=== PATIENT | female | born 1950 | race Caucasian/White ===

== ENCOUNTER 2024-12-19 08:23 | Day surgery (SDC) | payer MEDICARE, OTHER, SELFPAY ==
--- OUTSIDE RECORDS SUMMARY | 2023-12-08 04:15 | XMS_ITS ---
Author Organization [facility] Address [address] [place] [address] Care Team Providers Care Braille Proofreader Name Role Phone Cosmo Mackenzie MD Primary Care Provider Terese Trammell Unavailable [phone] Gil Torres Unavailable [phone] REASON FOR VISIT Last PCP Visit: 06/2023 Medications Medication SIG (Take, Route, Frequency, Duration) Notes Start Date End Date Status Keflex 500 MG 1 capsule Orally every 12 hrs; Duration: 5 days Unknown Voltaren 1 % as directed Externally Active Keflex 500 MG 1 capsule Orally every 12 hrs; Duration: 5 days 05/10/2016 Unknown Physical Therapy . . . 2-3x/week; Duration: 3-4 weeks Active Motrin IB 200 MG 1 tablet as needed Orally every 6 hrs Unknown Ibuprofen 800 MG 1 tablet Orally Three times a day; Duration: 30 day(s) Unknown Zetia 10 MG 1 tablet Orally Once a day Unknown Aspirin 325 MG 1 tablet Orally Once a day Unknown Chantix 1 MG 1 tablet Orally Twice a day started 04/27/2016 Unknown Varenicline Tartrate 1 MG TAKE 1 TABLET BY MOUTH TWICE A DAY Oral; Duration: 90 Days Active Vitamin D3 Active Fish Oil Active Calcium Active Ezetimibe 10 MG TAKE 1 TABLET BY MOUTH EVERY DAY Oral; Duration: 90 Days Active Encounters Encounter Location Date Provider Diagnosis [facility] [address] [place] [address] 12/08/2023 Gil Torres Pain in right foot M79.671 and Sesamoiditis of right foot M25.871 Assessments Encounter Date Diagnosis (ICD Code) Assessment Notes Treatment Notes Treatment Clinical Notes Section Notes 12/08/2023 Pain in right foot (ICD-10 - M79.671) 12/08/2023 Sesamoiditis of right foot (ICD-10 - M25.871) Plan Of Treatment Medication Medication Name Sig Start Date Stop Date Notes Voltaren 1 % as directed Externally Physical Therapy . . . 2-3x/week; Duration: 3-4 weeks Next Appt Details Follow Up: 2 Months, Reason: Progress Notes * Michelle JOINER JDOB:1950 (74 yo F)Acc No.[id number]:12/08/2023 Progress Note Patient: Michelle CARMEN Provider: Mikayla Torres DPM :1950 A ge:73 Y S ex:Female Date:12/08/2023 Address:[address] [place] [address] , [facility] Pcp:Cosmo Mackenzie MD Subjective: * Chief Complaints: * 1 . Last PCP Visit: 06/2023. * HPI: F oot Pain: Nature: d ull. Location B ottom, Great toe joint, Right . Duration: s everal months. Onset/Cause: p revious hav sx 2016. Course: u nchanged. Aggrevated: s tanding, walking. Treatments: r est, pedag insoles, voltaren gel. Quality/Severity 5 , scale 1-10. * ROS: G eneral/Constitutional: Nausea d enies. V omiting d enies. H virgilio Thirst d enies. L oss appetite d enies. C hills d enies. F atigue d enies.?Fever d enies. N ight Sweats d enies. U nexplained weight loss d enies. O phthalmologic: Blurred vision d enies. R ed eye d enies. ? H EENTM: Dentures d enies. D izziness d enies. G lasses/contacts d enies. R etinopathy d enies. B lurred/double vision d enies. T MJ?denies. D ischarge/drainage d enies. I mplants d enies. H kelly of hearing denies. D ifficulty chewing/swallowing/speaking d enies. N ose bleeds d enies.?Sore mouth d enies. S wollen glands d enies. R espiratory: On Oxygen d enies. P neumonia/pleurisy d enies.?Bronchitis d enies. E mphysema d enies. C oughing d enies. C ough blood?denies. S hortness of breath d enies. W heezing d enies. C ardiovascular: Pacemaker d enies. M CHILDREN'S ATTENDANT d enies. W PW d enies. C HF d enies. H eart attack d enies. S eptal defect d enies. R apid beat d enies. C hest pain d enies. A trial Fib. d enies. M urmur/Palpitations d enies. G astrointestinal: Hemorrhoids d enies. S tomach/Abdominal pain d enies. D ark blood stool d enies. I rritable bowel d enies. C onstipation d enies. D iarrhea d enies. V omiting d enies. H ematology: Swelling d enies. B ruising d enies. B leeding problem d enies. G enitourinary: Blood urine d enies. F requent/Painfu/urination/bladder control d enies. K idney stones d enies. I nfection (UTI) d enies. N ephropathy d enies. M usculoskeletal: Hammertoes d enies. B unions d enies. S coliosis/kyphosis d enies. M uscle cramps / walking d enies. G eneralized aches and pains?denies. W eakness d enies. I nteg.: Goins d enies. S cars d enies. C orns/calluses?denies. I ngrown nails d enies. P ainful nails d enies. R ashes d enies. N eurologic: Difficulty sleeping d enies. B ipolar d enies. B rain disorder d enies. B alance trouble d enies. C onfusion d enies. F ainting/blackouts d enies. H eadache d enies. T remors d enies. * Medical History: * Medications: T aking Calcium , Taking Vitamin D3 , Taking Fish Oil , Taking Ezetimibe 10 MG Tablet TAKE 1 TABLET BY MOUTH EVERY DAY Oral , Taking Varenicline Tartrate 1 MG Tablet TAKE 1 TABLET BY MOUTH TWICE A DAY Oral , Taking Voltaren 1 % Gel as directed Externally , Taking Physical Therapy . . . . 2-3x/week , Unknown Aspirin 325 MG Tablet 1 tablet Orally Once a day , Unknown Chantix 1 MG Tablet 1 tablet Orally Twice a day , Notes to Pharmacist: started 04/27/2016, Unknown Ibuprofen 800 MG Tablet 1 tablet Orally Three times a day , Unknown Zetia 10 MG Tablet 1 tablet Orally Once a day , Unknown Motrin IB 200 MG Tablet 1 tablet as needed Orally every 6 hrs , Unknown Keflex 500 MG Capsule 1 capsule Orally every 12 hrs , Unknown Keflex 500 MG Capsule 1 capsule Orally every 12 hrs Objective: * Vitals: * Examination: G eneral Examination: GENERAL APPEARANCE: p leasant, alert, well nourished, well developed, well hydrated, with good attention to hygene/body habitus, and in no acute distress. ORIENTED: p erson,place, and time. N eurological: SENSORY: N eurological exam is normal, pain sensation normal, vibration sensation intact, pinprick sensation is normal in the lower extremities, denies, tingling, burning, anesthesia, paresthesia, hyperesthesia, B/L, Neurological exam demonstrates pop plantar right first mtpj medial sesamoid. TINEL'S COMPRESSION: N egative tarsal tunnel, avinash pedis, and medial calcaneal nerves B/L. BABINSKI REFLEX: a bsent. N euroma Pain: PALPATION: N o interspace pain noted on palpation. ? V ascular: DP PULSES (B): 2 /4, B/L. PT PULSES (B): 2 /4, B/L. CAPILLARY FILL TIME: 3 secs. per digit, B/L. TROPHIC CONDITION-TEXTURE/ELASTICITY/TURGOR/HAIR GROWTH (B):?normal, B/L. TEMPERTURE GRADIENT (C): w arm to cool, proximal to distal, B/L. PIGMENTATION: n ormal, B/L. EDEMA (C): n o edema. TELANGECTASIA: a bsent. VARICOSITIES: a bsent. D ermatologic: SKIN FINDINGS: S kin exam reveals normal texture, elasticity, and tugor. There are no masses. The interspaces are clear, B/L . O rthopedic: MUSCLE STRENGTH: 5 /5 all groups in a symmetrical fashion , B/L. GAIT ABNORMALITY: p ronated, abducted, B/L. ? Assessment: * Assessment: 1. P ain in right foot - M79.671 (Primary) 2 . S esamoiditis of right foot - M25.871 Plan: * Treatment: 2. S esamoiditis of right foot Start Physical Therapy ., ., ., ., 2-3x/week, 3-4 weeks, Dx:, Refills .. * Follow Up: 2 Months * Images: * The named appointment provid er may or may not be the originator of this progress note, and it is not deemed complete until electronically signed by the appointment provider. Sign off status: Pending * Provider: Mikayla Torres DPM Date: 1 Generated for Angel canales/Jonnie/Lesleeitting on: 0 10/23/2024 11:32 AM EDT History and Physical Notes * HPI (History of Present Illness) Category Sub-Category Detail Notes Category Not es Foot Pain Aggrevated: standing, walking Onset/Cause: previous hav sx 2016 Course: unchanged Duration: several months Nature: dull Treatments: rest, pedag insoles, voltaren gel Quality/Severity 5, scale 1-10 Location Bottom, Great toe donte int, Right Examination Category Sub-Category Detail Notes Category Not es Neuroma Pain PALPATION: No interspace pain noted on palpation Neurological SENSORY: Neurological exa m is normal, pain sensation normal, vibration sensation intact, pinprick sensation is normal in the lower extremities, denies, tingling, burning, anesthesia, paresthesia, hyperesthesia, B/L, Neurological exam demonstrates pop plantar right first mtpj medial sesamoid BABINSKI REFLEX: absent TINEL'S COMPRESSION: Negative tarsal lolis felicity, avinash pedis, and medial calcaneal nerves B/L Dermatologic SKIN FINDINGS: Skin exam reveal s normal texture, elasticity, and tugor. There are no masses. The interspaces are clear, B/L Orthopedic GAIT ABNORMALITY: pronated, abducted, B/L MUSCLE STRENGTH: 5/5 all groups in a symmetrical fashion , B/L General Examination GENERAL APPEARANCE: pleasant , alert, well nourished, well developed, well hydrated, with good attention to hygene/body habitus, and in no acute distress ORIENTED: person,place, and ti me Vascular DP PULSES (B): 2/4, B/L PT PULSES (B): 2/4, B/L CAPILLARY FILL TIME: 3 secs. per digit, B/L TEMPERTURE GRADIENT (C): warm to cool, p roximal to distal, B/L TROPHIC CONDITION-TEXTURE/ELASTICITY/TURGOR/HAIR GROWTH (B): normal, B/L EDEMA (C): no edema TELANGECTASIA: absent VARICOSITIES: absent PIGMENTATION: normal, B/L
--- OUTSIDE RECORDS SUMMARY | 2024-10-23 11:33 | XMS_ITS | Patient Health Record ---
Author Organization [facility] Address [address] [place] [address] Care Team Providers Care Tank Setter Helper Name Role Phone Cosmo Mackenzie Primary Care Provider Freddy Johnson Unavailable [phone] Allergies Allergen (clinical drug ingredient) Drug/Non Drug Allergy documented on EMR Reaction Allergy Type Onset Date Status nickel ? (uncoded) metal contact dermatitis Allergy Active Reason For Referral No Information Medications Medication SIG (Take, Route, Frequency, Duration) Notes Start Date End Date Status Varenicline Tartrate (Starter) 0.5 MG X 11 & 1 MG X 42 TAKE DIRECTED Oral for 26 Days Chantix Active Fish Oil 1000 MG 1 capsule Orally Thr ee times a day for 30 day(s) 09/19/2024 Active Vitamin D 50 MCG (1999 UT) 1 tablet Orally Once a day for 30 day(s) 09/19/2024 Active Hair Skin & Nails - as directed Orally 09/19/2024 Active Praluent 75 MG/ML Subcutaneous for 28 Days Active Ezetimibe 10 MG TAKE 1 TABLET BY OPAL TH EVERY DAY Oral for 90 Days Active Immunizations Vaccine Route Administration Date Status Comme nts Influenza Unknown 12/27/2023 Administered Problems Problem Type SNOMED Code ICD Code Onset Dates Problem Status W/U Status Risk Notes Problem Colon cancer screening (354446254) Colon cancer screening (V76.51) Active confirmed Problem Long-term current use of aspirin (534511478214889) Aspirin long-term use (V58.66) Active confirmed Problem Colon cancer screening (677946816) Colon cancer screening (Z12.11) Active confirmed Problem Long-term current use of antithrombotic (886699773751155) termite helper (current) use of antithrombotics/ antiplatelets (Z79.02) Active confirmed Problem Preprocedural examination (490918586820328) Preprocedural examination (Z01.818) Active confirmed Vital Signs Temperature 97.1 degrees Fahrenheit 09/19/2024 Blood pressure diastolic 01 mm Hg 09/19/2024 Height 64.5 in 09/19/2024 Blood pressure systolic 001 mm Hg 09/19/2024 Weight 154 lbs 09/19/2024 BMI 26.02 kg/m2 09/19/2024 Procedures Procedure Date Ordered Date Performed Result Body Sit e COLONOSCOPY 09/19/2024 N/A Encounters Encounter Location Date Provider Diagnosis [facility] [address] [place] [address] 09/19/2024 Freddy Marks Preprocedural examination Z01.818 ; termite helper (current) use of antithrombotics/antipla telets Z79.02 and Colon cancer screening Z12.11 Assessments Encounter Date Diagnosis (ICD Code) Assessment Notes Treatment Notes Treatment Clinical Notes Section Notes 09/19/2024 detention (current) use of antithrombotics/a ntiplatelets (ICD-10 - Z79.02) Overall, Mary Beth appears quite well. I did recommend a follow-up colonoscopy for screening given her age, good clinical appearance, and her last exam being just about 10 years ago. We did review the rationale for this in regard to colon cancer prevention. Full consent has been obtained for this, including risk of bleeding and perforation. The procedure will be done with monitored anesthesia care. She was given the below instructions regarding adjustment of her medication for the procedure. The procedure will be scheduled for sometime in the Fall so as to allow time for her cardiac workup. I did advise her to keep me posted in that regard and to let me know of any medication changes. She will have PAT testing prior to the colonoscopy to allow Anesthesia to get what ever information they need from her cardiac workup. Mary Beth was comfortable with this plan. Thank you again for allowing me to participate in Mary Beth's care. I shall continue to keep you advised of her progress. 09/19/2024 Preprocedural examination (ICD-10 - Z01.818) Overall, Mary Beth appears quite well. I did recommend a follow-up colonoscopy for screening given her age, good clinical appearance, and her last exam being just about 10 years ago. We did review the rationale for this in regard to colon cancer prevention. Full consent has been obtained for this, including risk of bleeding and perforation. The procedure will be done with monitored anesthesia care. She was given the below instructions regarding adjustment of her medication for the procedure. The procedure will be scheduled for sometime in the Fall so as to allow time for her cardiac workup. I did advise her to keep me posted in that regard and to let me know of any medication changes. She will have PAT testing prior to the colonoscopy to allow Anesthesia to get what ever information they need from her cardiac workup. Mary Beth was comfortable with this plan. Thank you again for allowing me to participate in Mary Beth's care. I shall continue to keep you advised of her progress. 09/19/2024 Colon cancer screening (ICD-10 - Z12.11) Overall, Mary Beth appears quite well. I did recommend a follow-up colonoscopy for screening given her age, good clinical appearance, and her last exam being just about 10 years ago. We did review the rationale for this in regard to colon cancer prevention. Full consent has been obtained for this, including risk of bleeding and perforation. The procedure will be done with monitored anesthesia care. She was given the below instructions regarding adjustment of her medication for the procedure. The procedure will be scheduled for sometime in the Fall so as to allow time for her cardiac workup. I did advise her to keep me posted in that regard and to let me know of any medication changes. She will have PAT testing prior to the colonoscopy to allow Anesthesia to get what ever information they need from her cardiac workup. Mary Beth was comfortable with this plan. Thank you again for allowing me to participate in Mary Beth's care. I shall continue to keep you advised of her progress. Plan Of Treatment Pending Test Test Name Order Date COLONOSCOPY 09/19/2024 Future Test Test Name Order Date COLONOSCOPY 09/24/2014 Next Appt Details Provider Name:Freddy Marks , 12/19/2024 09:30:00 AM, [address] [place] [address] , [place], [place], [id number], Insurance Providers Payer Name Payer Address Payer Phone Subscriber Number Group Number Insured Name Patient Relationship to Insured Coverage Start Date Coverage End Date MEDICARE OF [place] [address] [place] [id number] MARY BETH ROMANO Self - patient is the insured 4 [employer] ([employer] [address] [place] [id number] [phone] [id number] MiliMARY BETH WATKINS Self - patient is the insured 4 Medical (General) History Medical History History ICD Code Colonoscopy 12-19-2003- only hyperplastic polyps, sigmoid diverticulosis, and internal hemorrhoids Denies NH,DM,CVA,renal disease Breast [id number] mast ectomy, in 2019 recurred on the right- surgery as below Hyperlipidemia Intermittent tachycardias- s eeing Dr. Andrews and Dr. Victoria at [facility] Cardiology- - 'Early COPD - -no smoking since early 2024 Colonoscopy 12/2014- 1 tiny tubular francis david removed from the Ileocecal valve Surgical History Surgery Date(Month/Year) Right mastectomy 2019 Right and left knee TKR Tonsillectomy Left mastectomy for breast cancer 2004 [facility]
--- OUTSIDE RECORDS SUMMARY | 2024-10-23 11:33 | XMS_ITS | Clinical Summary ---
Author Organization [facility] Address [address] [address] Phone Care Team Providers Care Medicare Specialist Name Role Phone Jaspreet Smith MD Primary Care Provider [phone] Allergies No known active allergies Medications sennosides (SENNA) 8.6 mg Cap Take 8.6 mg by mouth daily. Active docusate sodium (COLACE) 100 MG capsule Take 100 mg by mouth 2 (two) times a day. Active ezetimibe (ZETIA) 10 mg tablet Take 10 mg by mouth daily. Active aspirin 325 MG tablet Take 325 mg by mouth 2 (two) times a day. Active varenicline (CHANTIX) 1 mg tablet Take 1 mg by mouth 2 (two) times a day. Active acetaminophen (TYLENOL EXTRA STRENGTH) 500 MG tablet Take 500 mg by mouth 3 (three) times a day. Active HYDROmorphone (DILAUDID) 2 MG tablet Take 2 mg by mouth every 3 (three) hours as needed (right knee). Active celecoxib (CELEBREX) 200 MG capsule Take 200 mg by mouth daily. start day after surgery Active Active Problems Problem Noted Date Diagnosed Date Breast cancer 01/24/2012 Overview (04/27/2014): Malignant tumor of breast; Left; diagnosed via mammogram Estrogen+ mastectomy screening since then is normal BRCA negative Hyperlipidemia 01/24/2012 Overview (04/27/2014): Hyperlipidemia Social History Tobacco Use Types Packs/Day Years Used Date Smoking Tobacco: Former Cigarettes Comments:Quit smokin01/20 Education Answer Date Recorded Are you interested in more education? Not on tito e 07/01/2022 Are you concerned about learning? Not on file 07/01/2022 No 07/01/2022 No 07/01/2022 Digital Access Answer Date Recorded No 08/02/2022 No 08/02/2022 No 08/02/2022 Reliable internet access at home? Not on file 08/02/2022 Device with a working camera? Not on file Comments Unknown Sex and Gender Information Value Date Recorded Sex Assigned at Not on file Legal Sex Female 7:33 PM EST Gender Identity Not on file Sexual Orientation Not on file Last Filed Vital Signs Vital Sign Reading Time Taken Comments Blood Pressure 104/68 02/04/2017 10:02 AM EST Pulse 68 02/04/2017 10:02 AM EST Temperature 37.2 C (99 F) 02/04/2017 10:02 AM EST Respiratory Rate - - Oxygen Saturation 99% 02/04/2017 10:02 AM EST Inhaled Oxygen Concentration - - Weight 69.9 kg (154 lb) 01/14/2017 11:56 AM EST Height 162.6 cm (5' 4 ) 01/14/2017 11:56 AM EST Body Mass Index 26.43 01/14/2017 11:56 AM EST Plan of Treatment Health Maintenance Due Date Last Done Comments LIPID PANEL 1950 DEPRESSION SCREENING 1963 SMOKING Hx and SMOKELESS TOBACCO SCREENING 05/15/1964 HEPATITIS C SCREENING 05/15/1969 MAMMOGRAM 1991 COLOGUARD 05/15/1996 COLONOSCOPY 05/15/1996 COLORECTAL CANCER SCREENING 05/15/1996 FIT TEST 05/15/1996 FOBT 05/15/1996 SIGMOIDOSCOPY 05/15/1996 VIRTUAL COLONOSCOPY 05/15/1996 OSTEOPOROSIS SCREENING INITI AL (ONE-TIME) 05/15/2016 COVID-19 VACCINE (3 - 2023-2 5 season) 2023 05/13/2020, 04/21/2020 Adult Td,Tdap Booster 03/09/2025 03/09/2015 RSV VACCINE (1 - 1-dose 75+ series) 05/15/2026 ZOSTER VACCINES Completed 10/06/2017, 07/19/2017 PNEUMOCOCCAL VACCINES (50+ years) Completed 12/05/2018, 11/18/2017 HEPATITIS A VACCINES Aged Out No long er eligible based on patient's age to complete this topic HIB VACCINES Aged Out No longer eligi ble based on patient's age to complete this topic MENINGOCOCCAL VACCINES (ACWY) Aged Out No longer eligible based on patient's age to complete this topic MENINGOCOCCAL VACCINES (B) Aged Out N o longer eligible based on patient's age to complete this topic Medical Devices Not on file Insurance MEDICARE PART A & B MEDICARE PART A & B MEDICARE PART A & B MEDICARE PART A & B MEDICARE PART A & B MEDICARE PART A & B MEDICARE PART A & B MEDICARE PART A & B MEDICARE PART A & B Care Teams Medicare Specialist Relationship Specialty Start Date End Date Jaspreet Smith MD PCP - General 07/11/14 Additional Source Comments The information contained in this document represents components of the legal health record. It is not the complete legal health record.[facility]
[2024-12-03 09:58] VITALS: BMI 26.1
--- NOTE | 2024-12-06 12:54 | P.CONAN_ITS ---
HPI - Anesthesia Eval Consult details Narrative: 74yo F for Colonoscopy, 12/19/24 Eval with [facility] and EP 08/2024 d/t elevated CV risk, palpitations. Managing HLD tx, advised quit smoking, w/u for possible SVT - pt monitoring at home with watch. [facility] Past Medical History Medical History History of chemotherapy Arthritis Cough COPD (chronic obstructive pulmonary disease) Tachycardia Tobacco abuse Palpitations Osteopenia Back pain Dyslipidemia Breast cancer BRCA negative URI, acute Surgical History Surgical History Hx of laparoscopy (~1980) Hx of right mastectomy (~2019) H/O colonoscopy History of bilateral knee replacement Hx of tonsillectomy (~1972) Hx of hysterectomy (~1989) Hx of mastectomy (~2004) Social History Social History Are you a primary live in caregiver to a significant other at home: No Do you presently have visiting nurse or other home services: No Patient Tobacco Use Status: Current someday Tobacco user Cigarette Packs Per Day: 0.5 Cigarettes Per Day: 10.0 Use of substances other than those prescribed or required for medical reasons: No Have you been hit, kicked, punched, or otherwise hurt by someone within the past year? If so, by whom?: No Are you DNR?: No Advance Directives: No Advance Directives Information Provided: Yes Advance Directives on File: No Patient : No : No Poor oral hygiene: Yes Meds Allergies Allergy/AdvReac Type Severity Reaction Status Date / Time adhesive tape (ADHESIVE TAPE) Allergy Unknown RASH Verified 12/19/24 09:11 erythromycin base Allergy Unknown RASH Verified 12/19/24 09:11 (ERYTHROMYCIN BASE) nickel (NICKEL) Allergy Unknown UNKNOWN Verified 12/19/24 09:11 Sulfa (Sulfonamide AdvReac Unknown GI UPSET Verified 12/19/24 09:11 Antibiotics) (SULFA (SULFONAMIDE ANTIBIOTICS)) Home Medications ?Medication ?Instructions ?Recorded ?Confirmed ?Last Taken ?Type alirocumab 75 mg/mL subcutaneous 75 mg subcut Q2W 11/0611/30/24 Unknown History pen injector (Praluent Pen) calcium 600 mg (as 1 tab PO DAILY 11/30/2411/06 Unknown History carbonate)-vitamin D3 10 mcg (400 unit) tablet (Calcium 600 + D(3)) cholecalciferol (vitamin D3) 25 25 mcg PO BID 11/30/24 12/03/24 Unknown History mcg (1,000 unit) capsule (Vitamin D3) ezetimibe 10 mg tablet 10 mg PO BEDTIME 11/30/24 Unknown History ferrous sulfate 324 mg (65 mg 324 mg PO Q OTHER DAY 12/03/24 Unknown History iron) tablet,delayed release omega 4-rzt-exk-fish oil 1,000 mg 1 cap PO BID 5 12/03/24 12/17/24 History (120 mg-180 mg) capsule (Fish Oil) varenicline tartrate 1 mg tablet 1 mg PO BID 11/30/24 12/03/24 Unknown History vitamins A,C,R-spuk-wvpunc 4,296 1 cap PO BID 11/30/24 12/03/24 Unknown History mcg-226 mg-90 mg capsule Exam Height,Weight and Vital Signs: Height 5 ft 4 in Weight 68.946 kg Narrative Narrative: EKG 11/2024 Ventricular Rate: 70 BPM Atrial Rate: 70 BPM P-R Interval: 166 ms QRS Duration: 78 ms Q-T Interval: 386 ms QTC Calculation(Bazett): 416 ms P [place]: 35 degrees R [place]: 16 degrees T [place]: 52 degrees Normal sinus rhythm Normal ECG When compared with ECG of 07-Aug-2024 08:01, No significant change was found Confirmed by ISAK LAURA, [facility] ([id number]) on 11/20/2024 5:35:03 PM Echocardiogram - Complete ? 08:01:13 Summary The left ventricle is normal in size. Systolic function is preserved. Ejection fraction is 60-65%. No definite wall motion abnormalities detected. Normal diastolic function. The left atrium is normal in size. The right ventricle is normal in size. Function is preserved. The right atrium is dilated. The pulmonary artery systolic pressure estimation is 25-30 mmHg. Comparison No prior study available for comparison. Assessment and Plan Assessment Anesthesia Assessment: Chart Reviewed
[2024-12-19 08:45] VITALS: BMI 26.8
[2024-12-19 09:10] VITALS: BP 104/70; PULSE 65; RESP 18; TEMP 36.7; O2SAT 100
[2024-12-19] MEDS: Lactated Ringers 1,000 ML 100 ML IVCONT (09:10)
--- NOTE | 2024-12-19 09:11 | HO.ANESPROP2 ---
[facility] Active Problems Active Problems: 2 weeks ago quit Past Medical History Medical History History of chemotherapy Arthritis Cough COPD (chronic obstructive pulmonary disease) Tachycardia Tobacco abuse Palpitations Osteopenia Back pain Dyslipidemia Breast cancer BRCA negative URI, acute Functional capacity: independent ambulation Family History Family history of problems with anesthesia: No Surgical History Surgical History Hx of laparoscopy (~1980) Hx of right mastectomy (~2019) H/O colonoscopy History of bilateral knee replacement Hx of tonsillectomy (~1972) Hx of hysterectomy (~1989) Hx of mastectomy (~2004) History of Problems with Anesthesia: No Social History Social History Are you a primary residential child care counselor to a significant other at home: No Do you presently have visiting nurse or other home services: No Patient Tobacco Use Status: Current someday Tobacco user Cigarette Packs Per Day: 0.5 Cigarettes Per Day: 10.0 Use of substances other than those prescribed or required for medical reasons: No Have you been hit, kicked, punched, or otherwise hurt by someone within the past year? If so, by whom?: No Are you DNR?: No Advance Directives: No Advance Directives Information Provided: Yes Advance Directives on File: No Patient : No : No Poor oral hygiene: Yes Meds Allergies Allergy/AdvReac Type Severity Reaction Status Date / Time adhesive tape (ADHESIVE TAPE) Allergy Unknown RASH Verified 12/19/24 09:11 erythromycin base Allergy Unknown RASH Verified 12/19/24 09:11 (ERYTHROMYCIN BASE) nickel (NICKEL) Allergy Unknown UNKNOWN Verified 12/19/24 09:11 Sulfa (Sulfonamide AdvReac Unknown GI UPSET Verified 12/19/24 09:11 Antibiotics) (SULFA (SULFONAMIDE ANTIBIOTICS)) Active Medications: Current Medications Albuterol Sulfate (Albuterol Sulfate (0.083%) 2.5 Mg/3 Ml Vial.Neb) 2.5 mg INHALE ONCE PRN PRN Reason: Shortness of Breath/Wheezing Lactated Ringer's (Lr) 1,000 mls @ 100 mls/hr IVCONT .Q10H JV Sodium Biphosphate/Sodium Phosphate (Sodium Phosphate,[place]-Dibasic 133 Ml Enema) 133 ml TX ONCE PRN PRN Reason: Poor Colonoscopy Prep Results Home Medications ?Medication ?Instructions ?Recorded ?Confirmed ?Last Taken ?Type alirocumab 75 mg/mL subcutaneous 75 mg subcut Q2W 11/30/24 11/30/24 Unknown History pen injector (Praluent Pen) calcium 600 mg (as 1 tab PO DAILY 11/30/24 11/30/24 Unknown History carbonate)-vitamin D3 10 mcg (400 unit) tablet (Calcium 600 + D(3)) cholecalciferol (vitamin D3) 25 25 mcg PO BID 11/30/24 12/03/24 Unknown History mcg (1,000 unit) capsule (Vitamin D3) ezetimibe 10 mg tablet 10 mg PO BEDTIME 11/30/24 12/03/24 Unknown History ferrous sulfate 324 mg (65 mg 324 mg PO Q OTHER DAY 11/30/24 12/03/24 Unknown History iron) tablet,delayed release omega 3-gnu-naz-fish oil 1,000 mg 1 cap PO BID 11/30/24 12/03/24 12/17/24 History (120 mg-180 mg) capsule (Fish Oil) varenicline tartrate 1 mg tablet 1 mg PO BID 11/30/24 12/03/24 Unknown History vitamins A,C,Q-kxhm-bupeil 4,296 1 cap PO BID 11/30/24 12/03/24 Unknown History mcg-226 mg-90 mg capsule Exam Exam Date and Time: 12/19/2024 Height,Weight and Vital Signs: Height 5 ft 4 in Weight 70.851 kg Airway Mallampati Class: II TM Dist: >3cm Neck ROM: Full Heart: rrr Lungs: ctab vesicular Assessment and Plan Assessment Anesthesia Assessment: Anesthesia Plan Discussed, Smoking Cess. Discussed and Chart Reviewed Final Anesthetic Review Family History of Problems with Anesthesia: No History of Problems with Anesthesia: No NPO: Yes ASA Class: II Final Preanesthetic Review: No Changes in Pt Med Stat, Meds/Allgs Chart Reviewed, Consent Obtained/Reviewed and Anes Risks/Benef Reviewed Patient Risk: Low Procedure Risk: Low Anesthetic Plan Anesthetic Plan: MAC: Disposition: Standard PACU
[2024-12-19 10:38] VITALS: BP 110/63; PULSE 63; RESP 16; TEMP 36.6; O2SAT 100
--- NOTE | 2024-12-19 10:42 | PM.OP ---
Brief Operative Note Date of Service: 12/19/24 Pre-op diagnosis: Screening Post-op diagnosis: other (Polyps) Procedure: Colonoscopy to the cecum and TI with hot snare polypectomy x 2 Surgeon: Freddy Marks MD Anesthesia: MAC Was an Imaging Science Professor used for this Procedure?: No Estimated blood loss (mL): 0 Pathology: other (A. Transverse colon polyps) Condition: stable Disposition: PACU
[2024-12-19 10:45] VITALS: BP 105/64; PULSE 55; RESP 16; O2SAT 100
[2024-12-19 11:00] VITALS: BP 107/59; PULSE 62; RESP 16; TEMP 36.6; O2SAT 100
--- NOTE | 2024-12-19 12:39 | OP_ITS ---
DATE OF SERVICE: 12/19/2024 SURGEON: Freddy Marks MD INDICATIONS: The patient presents for evaluation of colorectal cancer screening and a prior history of a tubular adenoma. Full consent has been obtained from her for this, including risks of bleeding and perforation. PREOPERATIVE DIAGNOSIS: POSTOPERATIVE DIAGNOSIS: PROCEDURE PERFORMED: Colonoscopy to the cecum and terminal ileum with hot snare polypectomy x2. ESTIMATED BLOOD LOSS: COMPLICATIONS: ANESTHESIA: Medication used; monitored anesthesia care. ASSISTANTS: SPECIMENS: PREOPERATIVE DIAGNOSES: Colorectal cancer screening and prior history of tubular adenoma. POSTOPERATIVE DIAGNOSES: Colorectal cancer screening and prior history of tubular adenoma, colon polyps, diverticulosis, and internal hemorrhoids. DESCRIPTION OF PROCEDURE: The patient was placed in the left lateral decubitus position. The digital rectal exam revealed no abnormalities. The Olympus video pediatric colonoscope was entered into the rectum and advanced easily to the cecum. Once in the cecum, I did identify normal-appearing cecal pouch with appendiceal orifice and normal-appearing ileocecal valve. The terminal ileum was cannulated and appeared normal. The scope was withdrawn back into the colon. The entire cecum and appendiceal orifice appear normal. The scope was slowly withdrawn assessing all mucosal surfaces carefully. Preparation was excellent. In the transverse colon were 2 flat, but raised approximately 10 to 12 mm, possibly serrated polyps, which were both removed by hot snare polypectomy and recovered by suction. Both polypectomy sites appear clean, without any sign of residual polyp nor bleeding. I did not visualize any other polyps, colitis, nor angiodysplasia. There was a moderate amount of sigmoid diverticulosis. In the rectum, scope was retroflexed visualizing internal hemorrhoids, but no other pathology. The rectal mucosa appeared normal. The scope was straightened and withdrawn from the patient. She tolerated the procedure well and was transferred to the recovery area in stable condition. IMPRESSION: 1. Colon polyps. 2. Diverticulosis. 3. Internal hemorrhoids. PLAN: The results of the pathology will be checked. If these are serrated polyps, I would recommend a repeat colonoscopy within 5 years for surveillance. If they are only hyperplastic, then I do not think she will need any further screening colonoscopies. She was advised not to use any aspirin, NSAIDs, nor fish oil for 1 week. MD VESNA Garber/ROBLESL / [phone] [facility] [place]
== END 2024-12-19 11:25 | disposition home or self-care (01) ==
PROVIDERS: PCP Family Medicine; Visit Provider Internal Medicine
PROC: 0DJD8ZZ Inspection of Lower Intestinal Tract, Via Natural or Artificial Opening Endoscopic (ICD-10-PCS; CPT 45378; principal; 2024-12-19 09:30)
DX: Z12.11 Encounter for screening for malignant neoplasm of colon (principal); Z86.0101 Personal history of adenomatous and serrated colon polyps; K63.5 Polyp of colon; K57.30 Diverticulosis of large intestine without perforation or abscess without bleeding; K64.8 Other hemorrhoids; R00.0 Tachycardia, unspecified; E78.5 Hyperlipidemia, unspecified; J44.9 Chronic obstructive pulmonary disease, unspecified; Z85.3 Personal history of malignant neoplasm of breast; Z90.13 Acquired absence of bilateral breasts and nipples; Z92.21 Personal history of antineoplastic chemotherapy; Z80.3 Family history of malignant neoplasm of breast; Z82.49 Family history of ischemic heart disease and other diseases of the circulatory system; Z79.02 Long term (current) use of antithrombotics/antiplatelets; Z90.710 Acquired absence of both cervix and uterus; Z96.653 Presence of artificial knee joint, bilateral; Z87.891 Personal history of nicotine dependence
CPT/HCPCS: 45385; 88305; J2003; J2704